=== PATIENT | female | born 1985 | race Caucasian/White ===

== ENCOUNTER → 2024-03-16 | Outpatient (CLI) | payer OTHER ==
[~2024-03-16] MED LIST: ISOVUE-370 76% 100ML VIAL ONE
== END ==
LOC: M PLAIMG 08:05
PROVIDERS: ATTEND Nurse Practitioner Family
DX: R59.0 Localized enlarged lymph nodes (principal)

== ENCOUNTER → 2024-04-12 | Outpatient (CLI) | payer OTHER ==
[~2024-04-12] MED LIST changes: -ISOVUE-370 76% 100ML VIAL ONE; +LIDOCAINE 1% MDV 20ML VIAL As Ordered ONE
[2024-04-12 10:15] VITALS: TEMP 97.7
[2024-04-12 11:40] VITALS: BP 148/75; O2SAT 99
== END ==
LOC: M IRPRO 10:03
PROVIDERS: ATTEND Otolaryngology
DX: D37.039 Neoplasm of uncertain behavior of the major salivary glands, unspecified (principal)

== ENCOUNTER 2024-07-13 06:15 | Day surgery (SDC) | payer OTHER ==
[~2024-07-13] VITALS: Ht 165.1 cm; Wt 68.9 kg
[~2024-07-13 06:15] MED LIST changes: +IBUP200C89 PO; -LIDOCAINE 1% MDV 20ML VIAL As Ordered ONE; +SYNT125T PO
[2024-07-13] MEDS ORDERED: LR 1,000 ML IV SCH (06:35)
[2024-07-13] MEDS ORDERED: ROCURONIUM BROMIDE 50MG/5ML VIAL As Ordered ONE (07:09)
[2024-07-13] MEDS ORDERED: fentaNYL 100 MCG/2 ML INJECTION As Ordered ONE (07:09)
[2024-07-13] MEDS ORDERED: LIDOCAINE 2% 100MG/5ML SDV (FOR ANES.) As Ordered ONE (07:09)
[2024-07-13] MEDS ORDERED: MIDAZOLAM INJ 2MG/2ML VIAL As Ordered ONE (07:09)
[2024-07-13] MEDS ORDERED: propofoL 200 MG/20 ML VIAL As Ordered ONE (07:09)
[2024-07-13] MEDS ORDERED: dexmedeTOMIDine (4MCG/ML)200MCG/50ML BTL (PRECEDEX) As Ordered ONE (07:10)
[2024-07-13] MEDS ORDERED: ONDANSETRON 4MG 2ML VIAL As Ordered ONE (07:10)
[2024-07-13] MEDS ORDERED: ACETAMINOPHEN 1000MG 100ML IV BAG As Ordered ONE (07:17)
[2024-07-13] MEDS ORDERED: LACRILUBE (AKWA TEARS) OPHTH OINT 3.5GM As Ordered ONE (07:21)
[2024-07-13] MEDS: SCOPOLAMINE 1MG TRANSDERMAL PATCH TOP ONE (07:31)
[2024-07-13] MEDS ORDERED: GLYCOPYRROLATE INJ 0.2 MG/ML 2 ML VIAL As Ordered ONE (08:03)
[2024-07-13] MEDS ORDERED: SUCCINYLCHOLINE 100MG/5ML SYRINGE As Ordered ONE (08:04)
[2024-07-13] MEDS ORDERED: ePHEDrine SULFATE 25 MG/5 ML(5MG/ML) SYRINGE As Ordered ONE (08:12)
[2024-07-13] MEDS: EPINEPHrine 1MG/ML INJ 30ML MD-VIAL As Ordered ONE (09:58)
[2024-07-13] MEDS: METHYLENE BLUE 0.5% (5MG/ML) 10 ML AMP (PROVAYBLUE) As Ordered ONE (10:00)
[2024-07-13] MEDS ORDERED: METOCLOPRAMIDE INJ 10MG/2ML VIAL As Ordered ONE (11:48)
[2024-07-13] MEDS: BACITRACIN OINTMENT 30GM TUBE As Ordered ONE (12:05)
[2024-07-13] MEDS: LIDOCAINE W/EPINEPHRINE 1% 20ML VIAL As Ordered ONE (12:05)
[2024-07-13] MEDS ORDERED: ONDANSETRON 4MG 2ML VIAL IV PRN (12:10)
[2024-07-13] MEDS ORDERED: MORPHINE 2 MG/ML 1ML VIAL IV PRN (12:10)
[2024-07-13] MEDS: fentaNYL 100 MCG/2 ML INJECTION IV PRN (13:26)
[2024-07-13] MEDS: oxyCODONE 5MG TAB PO PRN (13:40)
[2024-07-13 14:03] VITALS: BP 115/61; TEMP 97.6; O2SAT 96
== END 2024-07-13 14:40 | disposition home or self-care (01) ==
LOC: M SDC 06:15
PROVIDERS: ATTEND Otolaryngology
DX: D11.0 Benign neoplasm of parotid gland (principal); E03.9 Hypothyroidism, unspecified; Z91.040 Latex allergy status; Z79.890 Hormone replacement therapy
CPT/HCPCS: 42420; 81025; 88307; J0131; J0171; J0330; J1100; J1596; J2250; J2405; J2765; J3010; Q9968